=== PATIENT | female | born 1955 | race Caucasian/White ===

== ENCOUNTER 2021-06-28 08:31 | Outpatient (CLI) | payer OTHER, SELFPAY ==
[2021-06-28] MEDS: ZOLEDRONIC ACID 5 MG/100 ML 100 ML 200 MG IVPB (08:55)
[2021-06-28 08:59] VITALS: BP 130/74; PULSE 72; RESP 14; TEMP 36.6; O2SAT 98
--- NOTE | 2021-06-28 09:23 | PC.NURSE ---
Patient here for Reclast infusion. Education given on Reclast. No concerns voiced. IV Reclast administered. Tolerated well. Safe exit of hospital.
== END 2021-06-28 08:32 | disposition home or self-care (01) ==
LOC: CHSTREATRM 08:39
PROVIDERS: PCP Internal Medicine
DX: M81.0 Age-related osteoporosis without current pathological fracture (principal)
CPT/HCPCS: 96365; J3489

== ENCOUNTER 2022-08-15 09:02 | Outpatient (CLI) | payer OTHER, MEDICARE, SELFPAY ==
[2022-08-15] MEDS: ZOLEDRONIC ACID 5 MG/100 ML 100 ML 400 MG IVPB (09:21)
[2022-08-15 09:31] VITALS: BP 138/87; PULSE 80; RESP 14; TEMP 36.6; O2SAT 98; BMI 30.2
--- NOTE | 2022-08-15 09:48 | PC.NURSE ---
Patient here for yearly IV Reclast infusion. Education given. No concerns voiced. IV Reclast administered. SEE MAR. Tolerated well. Safe exit of hospital.
== END 2022-08-15 09:03 | disposition home or self-care (01) ==
LOC: CHSTREATRM 09:07
PROVIDERS: PCP Internal Medicine; Visit Provider Internal Medicine
DX: M81.0 Age-related osteoporosis without current pathological fracture (principal)
CPT/HCPCS: 96365; 96374; J3489

== ENCOUNTER 2023-08-30 09:21 | Outpatient (CLI) | payer OTHER, MEDICARE, SELFPAY ==
[2023-08-30 09:38] VITALS: BP 126/64; PULSE 64; RESP 14; TEMP 36.6; O2SAT 98; BMI 23.0
[2023-08-30] MEDS: ZOLEDRONIC ACID 5 MG/100 ML 100 ML 400 MG IVPB (09:45)
--- NOTE | 2023-08-30 10:04 | PC.NURSE ---
Patient here for Yearly IV Reclast infusion. Education given. No concerns. Voiced had no problems last year with this. Medication administered. SEE MAR. Tolerated well. We will notify her next Aug, 2024 when get an order from Dr. Henry for next years infusion.
== END 2023-08-30 10:05 | disposition home or self-care (01) ==
PROVIDERS: PCP Internal Medicine; Visit Provider Internal Medicine
DX: M81.0 Age-related osteoporosis without current pathological fracture (principal)
CPT/HCPCS: 96365; 96374; J3489

== ENCOUNTER 2024-09-02 10:11 | Outpatient (CLI) | payer MEDICARE, SELFPAY ==
[2024-09-02] MEDS: ZOLEDRONIC ACID 5 MG/100 ML 100 ML 400 MG IVPB (10:28)
[2024-09-02 10:39] VITALS: BP 99/60; PULSE 78; RESP 14; TEMP 36.4; O2SAT 98; BMI 22.4
[2024-09-02 10:53] VITALS: BP 102/63; PULSE 72; RESP 14
--- NOTE | 2024-09-02 10:54 | PC.NURSE ---
Patient here for yearly Reclast infusion. Education given. No concerns voiced. Infusion administered. SEE MAR/ patient care notes. Tolerated well.
--- OUTSIDE RECORDS SUMMARY | 2024-09-02 11:33 | XMS_ITS ---
Author Organization Unknown Address [address] [place], [place] [id number] Phone Care Team Providers Care Contractor Broomcorn Threshing Name Role Phone TYRESE LUIS Attending Unavailable Immunization Immunization Date Status Additional Notes Code Code System Hep B, adolescent or pediatric 09/11/2011 Completed 08 CVX Hep B, adolescent or pediatric 04/04/2012 Completed 08 CVX Tdap 09/27/2015 Completed 115 CVX COVID-19, mRNA, LNP-S, PF, 3 0 mcg/0.3 mL dose 01/19/2021 Completed 208 CVX COVID-19, mRNA, LNP-S, PF, 3 0 mcg/0.3 mL dose 02/09/2021 Completed 208 CVX COVID-19, mRNA, LNP-S, PF, 3 0 mcg/0.3 mL dose 10/13/2021 Completed 208 CVX COVID-19, mRNA, LNP-S, bivalent, PF, 30 mcg/0.3 mL dose 07/11/2022 Completed 300 CVX Results BONE DENSITY STUDY DEXA HIP OR SPINE - Completed: 05/18/2023 12:44 LOINC: EXAM DESCRIPTION: BONE DENSITY STUDY DEXA HIP OR SPINE REASON FOR STUDY: 67 y/o year old F with given history of: Postmenopausal status. Patient with history of prior fracture. Patient has taken/is taking Reclast, vitamin-D, multivitamin and calcium. Admin Prog Coord/Model: Breeze Tech ([id number]) CLINICAL INFORMATION: Current height: 63 inches Maximum height: 63 inches Weight: 140 pounds Risk factors: Prior fracture COMPARISON: 02/25/2021 FINDINGS: AP LUMBAR SPINE L1-L4: Total BMD is 1.014 g/cm2 T-score is -0.45 This is a 1.2% decrease in comparison to prior exam which is not statistically significant. LEFT HIP: Total BMD is 0.819 g/cm2 T-score is -1.12 This is a 6.6% increase in comparison to prior exam which is statistically significant. Femoral neck BMD is 0.692 g/cm2 T-score is -2.52 FRAX: FRAX not reported due to T-scores of hip, femoral neck and/or spine being at or below -2.5 (Osteoporosis). IMPRESSION: ? ? Osteoporosis. REFERENCE: Bone mineral density: Normal (T-score above or = -1.0) Low bone mass (T-score between -1.0 and -2.5) replaces the previously used term osteopenia Osteoporosis (T-score = or below -2.5) Medical evaluation for secondary causes of low bone mineral density may be appropriate. FRAX is a World Health Organization validated fracture risk assessment tool that calculates a person's 10 year probability of a major osteoporosis related fracture and hip fracture. According to the National Osteoporosis Foundation guidelines, postmenopausal women and men age 50 or older with low bone mass and a 10 year probability of a major osteoporosis related fracture = or greater than 20% or a 10 year probability of a hip fracture = or greater than 3% should be considered for treatment. For further information, including treatment recommendations, please refer to the 2019 ISCD Official Positions (http://www.iscd.org) and the NOF's Clinician's Guide to Prevention and Treatment of Osteoporosis (http://www.nof.org/professionals/clinical-guidelines) THIS IS AN ELECTRONICALLY VERIFIED FINAL REPORT 05/23/2023 9:12 AM - Electronically signed by Iliana Cummings M.D. TW: LORI Report ID: [id number] Reading Location: [id number] DIG CANDIDA SCREENING BILATERAL - Completed: 05/18/2023 11:41 LOINC: See Scanned Image Attachment for Report Dictated By: Trans Initials: LL Trans Date: 05/21/23 08:54 <<REPDIST>> Social History Type Status Start Date End Date Code Code Syst em Smoking History Never smoker (Never Smoked) 651243011 SNOMED CT Sex Female Hospital Discharge Instructions Should you have any questions prior to discharge, please contact a member of your healthcare team. If you have left the hospital and have any questions, please contact your primary care physician. Reason For Referral No Data Found Plan of Treatment Digital Candida Screen Bilateral (77713) Digital Candida Screen Bilateral (75340) Bone Density Dexa 05/18/2023 Digital Canddia Screen Bilateral (15048) Bone Density Dexa 05/18/2023 Encounters Encounter Diagnosis Start Date Code Code Sys tem Screening mammography 05/18/2023 [id number] SNOMED -CT Personal Care Team Section Performer Name Performer Role Active Date Inactive JANELLE Bowman PCP - Primary care physician 2021-02-[address] [facility] 05/21/2023 08:[address] [address] RADIOLOGY REPORT Patient Number: [id number] Patient Name: GAGE BUENO Type: O/P MR Number: [id number] : 1955 Age: 67 Sex: F Room #: Admit Date: 05/18/23 Discharge Date 05/18/23 Ordering Physician: TYRESE LUIS Family Physician: TYRESE BENITEZ Second Physician: X-Ray Number : [id number] DIG CANDIDA SCREENING BILATERAL [id number] COMPLETE:05/18/23 11:41 TLS [id number] (REASON-CANDIDA DIAGNOS: SCREENING MAMMOGRAM See Scanned Image Attachment for Report Dictated By: Ruben Initials: LL Trans Date: 05/21/23 08:54 <<REPDIST>>
--- OUTSIDE RECORDS SUMMARY | 2024-09-02 11:33 | XMS_ITS | Continuity of Care Document ---
Author Organization [facility] Address [address] [place] [address] Phone Care Team Providers Care Construction Materials Tester Name Role Phone Celso Boyd MD Unavailable Unavailable Allergies, Adverse Reactions, Alerts Substance Reaction Status Criticality FLU VIRUS VACC TVS 2014- ( 18 YR UP) CELL DERIVED rash problems breathing(severe) Active No Information Streptococcus vaccine rash problems breathing(moderate) Active No Information Sulfa (Sulfonamide Antibiotics) rash pro blems breathing(severe) Active No Information Penicillins Active No Information Medications Medication Instructions Dosage Effective Dates (start - stop) Status Comments diclofenac 1 % topical gel - No Longer Active tramadol 50 mg tablet - No Longer Active clindamycin 300 mg capsule - No Longer Active Prilosec OTC 20 mg tablet,delayed release - No Longer Active Procedures Procedure Date X-ray exam shoulder minimum 2 views Independent Medical Examination [place] Advance Directives Directive Yes / No Effective Date File Name No Information Encounters Encounter Description Practice Location Reason(s) For Visit Diagnoses Date Provider Providers Copied on Encounter Independent Medical Examination [facility], [address], [id number], [place] tel:[phone] [facility] right shoulder (chief complaint) Pain in right shoulder [facility] [place]. [address], [address], [place], [place], [id number], [place]. tel:[phone] Family History Family Member Type Diagnosis Age At Onset Problem (finding) Family history of Cance r, unknown Problem (finding) No family history of Di abetes mellitus Problem (finding) Family history of hyper tension Immunizations Vaccine Date Status Comments influenza, injectable, quadr ivalent, (3 years or older) refused Source: Other Provid er Payers Payer name Insurance type Covered green party ID Stevie zarate(s) Sisi [id number] Social History Type Description Quantity Date Captured Comments Alcohol Use Details No Caffeine Use Details Unknown Tobacco Use Status Current non-smoker 17 Smoking Status Never smoker Non-Smoking Tobacco Use Details : No Details Available : No Details Available Sex Female Vital Signs Date / Time: Height Weight BMI Pulse Rate Blood Pressure Temperature Respiratory Rate Body Surface Area Head Circumference Head Circ. Percentile Wt./Goldy. Percentile BMI percentile Pulse Ox Inhaled Ox 11:18 AM 63.00 in 77.111 kg (170.00 lbs) 30.1 1 kg/m omi (2) Chief Complaint And Reason For Visit From encounter dated '07/09/2017 11:00'. right shoulder (chief complaint). Description: Leydi presents to the office for right shoulder complaints. Reason For Referral Reason For Referral No Information Plan Of Treatment Date Type Action Status Referral Ordered: X-ray exam shoulder minimum 2 views RT ordered History Of Present Illness Encounter Date Complaint History Of Prese nt Illness right shoulder Leydi presents t o the office for right shoulder complaints. Functional Status Date Functional Assessmen t No Information Instructions Date Instruction Additional Infor mation No Information Assessments Type Assessment Date assessment Pain in right shoulder 17 Patient Care Teams Name Effective Dates (start - stop) Status Members No Information
--- OUTSIDE RECORDS SUMMARY | 2024-09-02 11:33 | XMS_ITS | Clinical Summary ---
Author Organization [facility] Address [address] [place] [address] Phone Care Team Providers Care Planer Operator / Grader Name Role Phone Little Henry MD Primary Care Provider [phone] Allergies Active Allergy Reactions Criticality Noted Date Comments Influenza Virus Vaccine Other (see Comments) fevers and needed IV fluids Penicillins Anaphylaxis 09/27/2015 Streptomycin (Obsolete) Anaphylaxis 09/27/2015 Sulfa Antibiotics Anaphylaxis 09/27/2015 Tetracycline Nausea 09/27/2015 Medications omeprazole (PRILOSEC) 20 MG CAPSULE DELAYED RELEASE Take 20 mg by mouth daily. Active Calcium Carb-Cholecalcif melvina (CALCIUM 600 + D PO) Take 600 mg by mouth 2 times daily. Active Multiple Vitamins-Mineral s (MULTIVITAMIN PO) Take 1 Tab by mouth daily. Active traMADol (ULTRAM) 50 MG Tablet Take 1 Tab by mouth every 6 hours as needed for Pain. 30 Tab 0 01/05/2016 Active Immunizations Immunization Administration Dates Next Due TDAP Vaccine 09/27/2015 Social History Tobacco Use Types Packs/Day Years Used Date Smoking Tobacco: Never Smokeless Tobacco: Never Alcohol Use Standard Drinks/Week Comments Never 0 (1 standard drink = 0.6 oz pur e alcohol) Comments No Sex and Gender Information Value Date Recorded Sex Assigned at Not on file Legal Sex Female 11:03 PM CDT Gender Identity Not on file Sexual Orientation Not on file Last Filed Vital Signs Vital Sign Reading Time Taken Comments Blood Pressure 161/90 12/15/2020 11:03 PM CDT Pulse 75 12/15/2020 11:03 PM CDT Temperature 36.6 C (97.9 F) 12/15/2020 9:26 PM CDT Respiratory Rate 19 12/15/2020 9:26 PM CDT Oxygen Saturation 94% 12/15/2020 11:03 PM CDT Inhaled Oxygen Concentration - - Weight 72.6 kg (160 lb) 12/15/2020 9:26 PM CDT Height 160 cm (5' 3 ) 12/15/2020 9:26 PM CDT Body Mass Index 28.34 12/15/2020 9:26 PM CDT Plan of Treatment Health Maintenance Due Date Last Done Comments DEXA Bone Density 1955 Hepatitis C Virus (HCV) Screening 1955 Colonoscopy 12/17/1999 Colorectal Cancer Screening 12/17/1999 Cologuard 2004 Immunochemical Fecal Occult Blood 2004 Mammogram 2004 Pneumococcal Immunization (5 0+ years) (1 of 1 - PCV) 2004 Zoster Immunization (1 of 2) 2004 Influenza Immunization (#1) 2024 SARS-COV-2 Immunization ( - season) 2024 10/13/2021, 02/09/2021, 01/19/2021 Respiratory Syncytial Virus (RSV) Immunization (Adult) (1 - 1-dose 75+ series) 2029 Hepatitis B Immunization Aged Out 012, 09/11/2011 No longer eligible based on patient's age to complete this topic DTaP/Tdap/Td Immunization Discontinued 09/27/2015 Meningococcal Immunization (ACWY) Aged Out No longer eligible based on patient's age to complete this topic Rotavirus Immunization Aged Out No lo nger eligible based on patient's age to complete this topic Insurance [id number] Care Teams Planer Operator / Grader Relationship Specialty Start Date End Date Little Henry MD [address] [place] [address] PCP - General Family Medicine 09/27/15
--- OUTSIDE RECORDS SUMMARY | 2024-09-02 11:33 | XMS_ITS | Clinical Summary ---
Author Organization [facility] Address [address] [place] [address] Care Team Providers Care Clerk Entry Level Name Role Phone Unavailable Primary Care Provider Unavailabl e Social History Tobacco Use Types Packs/Day Years Used Date Smoking Tobacco: Never Assessed Comments Unknown Sex and Gender Information Value Date Recorded Sex Assigned at Not on file Legal Sex Female 10:39 PM LEAD MOBILE DEVELOPER Gender Identity Not on file Sexual Orientation Not on file Plan of Treatment Health Maintenance Due Date Last Done Comments Colorectal Cancer Screening Colonoscopy (10 Years) 1955 Hepatitis C 1972 DTaP, Tdap and Td Vaccines ( 1 - Tdap) 1973 Mammogram Screening 1994 Zoster Vaccines (1 of 2) 2004 Dexa Scan (General) 12/17/2019 Pneumococcal Vaccine: 65+ Ye ars (1 of 1 - PCV) 12/17/2019 COVID-19 Vaccine (2023-2 5 season) 2024 Influenza Adult (#1) 2024 RSV Immunization or 60+ Years (1 - 1-dose 75+ series) 2029 Meningococcal B Vaccine Aged Out No l onger eligible based on patient's age to complete this topic Meningococcal Vaccine Aged Out No mariam alix eligible based on patient's age to complete this topic RSV Immunizations Under 20 Months Aged Out No longer eligible based on patient's age to complete this topic
== END 2024-09-02 10:12 | disposition home or self-care (01) ==
PROVIDERS: PCP Internal Medicine; Visit Provider Internal Medicine
DX: M81.0 Age-related osteoporosis without current pathological fracture (principal)
CPT/HCPCS: 96374; J3489